=== PATIENT | male | born 1950 | race Caucasian/White ===

== ENCOUNTER 2020-11-13 23:52 | Emergency (ER) | payer BC, MEDICARE ==
[~2020-11-13] VITALS: Ht 180.3 cm; Wt 81.1 kg
[2020-11-14] MEDS ORDERED: pseudoephedrine 30mg tablet PO ONE (00:30)
[2020-11-14] MEDS ORDERED: normal saline 100ml IV soln 100 ML IC ONE (00:30)
[2020-11-14] MEDS ORDERED: phenylephrine inj 0.2 MG in normal saline 50ml IV soln 10 ML IC ONE (01:15)
[2020-11-14 02:17] VITALS: BP 156/107
== END 2020-11-14 02:18 | disposition home or self-care (01) ==
LOC: ER 23:55
DX: N48.33 Priapism, drug-induced (principal); Z85.038 Personal history of other malignant neoplasm of large intestine; Z98.890 Other specified postprocedural states
CPT/HCPCS: 54220; 99284